=== PATIENT | male | born 1975 | race Caucasian/White ===

== ENCOUNTER 2017-03-10 05:34 | Emergency (ER) | payer SELFPAY ==
[~2017-03-10] VITALS: Ht 172.7 cm; Wt 109.1 kg
[2017-03-10 05:36] VITALS: BP 121/54; TEMP 97.9
[2017-03-10] MEDS ORDERED: HCTZ 25MG TAB25 MG PO (05:43)
[2017-03-10] MEDS ORDERED: ZOCOR 10MG10 MG PO (05:44)
[2017-03-10] MEDS ORDERED: PRINIVIL10 MG PO (05:44)
[2017-03-10] MEDS ORDERED: PERCOCET 325 MG1 TA3 PO (05:45)
[2017-03-10 06:51] VITALS: PULSE 88
== END 2017-03-10 06:51 | disposition home or self-care (01) ==
LOC: COL.ER 05:34
DX: S05.02XA Injury of conjunctiva and corneal abrasion without foreign body, left eye, initial encounter (principal); X58.XXXA Exposure to other specified factors, initial encounter